=== PATIENT | male | born 1950 | race Caucasian/White ===

== ENCOUNTER 2017-11-19 20:06 | Observation (INO) | payer OTHER ==
[~2017-11-19] VITALS: Ht 185.4 cm; Wt 103.6 kg
[2017-11-19 20:10] VITALS: BP 140/68; PULSE 55; RESP 20; TEMP 97.2; O2SAT 98
[2017-11-19 20:25] VITALS: BP 167/83; PULSE 58; RESP 16; O2SAT 98
[2017-11-19] MEDS ORDERED: MORPHINE SULFATE 2 MG/ML INJ IV PUSH ONE (21:00)
[2017-11-19] MEDS ORDERED: ONDANSETRON HCL 4 MG/2 ML VIAL IV PUSH ONE ×2 (21:00→23:30)
[2017-11-19 21:01] LABS: AUTOMATED NEUTROPHIL # 11.5 TH/MM3 (1.8-7.7); BASOPHIL # 0.1 TH/MM3 (0-0.2); BASOPHIL % 0.8 % (0.0-2.0); EOSINOPHIL # 0.1 TH/MM3 (0-0.4); EOSINOPHIL % 0.5 % (0.0-4.0); HEMATOCRIT 45.7 % (39.0-51.0); HEMOGLOBIN 14.8 GM/DL (13.0-17.0); LYMPH % 10.9 % (9.0-44.0); LYMPHOCYTE # 1.5 TH/MM3 (1.0-4.8); MEAN CELL VOLUME 93.8 FL (80.0-100.0); MEAN CORPUSCULAR HEMOGLOBIN 30.4 PG (27.0-34.0); MEAN CORPUSCULAR HGB CONC 32.4 % (32.0-36.0); MEAN PLATELET VOLUME 9.4 FL (7.0-11.0); MONO % 3.4 % (0.0-8.0); MONOCYTE # 0.5 TH/MM3 (0-0.9); NEUT % 84.4 % (16.0-70.0); PLATELET COUNT 265 TH/MM3 (150-450); RED BLOOD COUNT 4.87 MIL/MM3 (4.50-5.90); RED CELL DISTRIBUTION WIDTH 13.6 % (11.6-17.2); WHITE BLOOD COUNT 13.7 TH/MM3 (4.0-11.0)
[2017-11-19 21:02] LABS: CHLORIDE 103 MEQ/L (98-107); SODIUM (NA) 138 MEQ/L (136-145)
[2017-11-19 21:06] LABS: ALBUMIN 3.9 GM/DL (3.4-5.0); BICARBONATE 27.5 MEQ/L (21.0-32.0); BLOOD UREA NITROGEN 17 MG/DL (7-18); CALCIUM 8.8 MG/DL (8.5-10.1); GLUCOSE,RANDOM 129 MG/DL (74-106); LIPASE 180 U/L (73-393)
[2017-11-19 21:09] LABS: ALT (GPT) 39 U/L (12-78); AST (GOT) 26 U/L (15-37); GLOMERULAR FILTRATION RATE 67 ML/MIN (>89)
[2017-11-19 21:11] LABS: TOTAL BILIRUBIN ADULT 0.6 MG/DL (0.2-1.0); TOTAL PROTEIN 7.5 GM/DL (6.4-8.2)
[2017-11-19 21:12] LABS: ALKALINE PHOSPHATASE 78 U/L (45-117)
[2017-11-19 21:14] VITALS: BP_SYST 165; BP_SYST 166; BP_DIAS 72; BP_DIAS 78; PULSE 62; RESP 16
[2017-11-19 21:19] LABS: PROTHROMBIN TIME - PATIENT 10.6 SEC (9.8-11.6)
[2017-11-19 21:32] LABS: TROPONIN I LESS THAN 0.02 NG/ML (0.02-0.05)
--- NOTE | 2017-11-19 21:43 | PD ---
HPI Chief Complaint: Abdominal Pain Time Seen by Provider: 20:22 Travel History International Travel<30 days: No Contact w/Intl Traveler<30days: No Traveled to known affect area: No History of Present Illness HPI 67-year-old male presents emergency department for evaluation of spasmodic burning pain throughout his entire abdomen. Patient states he does watching football when the pain started. States he has never had pain like this before. States it radiates up into his chest, nausea without vomiting, no diarrhea no constipation. Patient has been an alcoholic in the past but states not drinking several years. He also states his abdomen had been noted to be more distended according to his friend. States pain as burning throughout his entire abdomen radiation to his chest, context as above PFSH Past Medical History Tetanus Vaccination: Unknown ?: Not Social History Alcohol Use: No Tobacco Use: No Substance Use: No Allergies-Medications (Allergen,Severity, Reaction): Coded Allergies: No Known Allergies (Verified Allergy, Mild, 04/30/07) Reported Meds & Prescriptions Reported Meds & Active Scripts Active No Active Prescriptions or Reported Medications Review of Systems Except as stated in HPI: all other systems reviewed are Neg Physical Exam Narrative GENERAL: Well-developed well-nourished appears uncomfortable. SKIN: Focused skin assessment warm/dry. HEAD: Atraumatic. Normocephalic. EYES: Pupils equal and round. No scleral icterus. No injection or drainage. ENT: No nasal bleeding or discharge. Mucous membranes pink and moist. NECK: Trachea midline. No JVD. CARDIOVASCULAR: Regular rate and rhythm. No murmur appreciated. RESPIRATORY: No accessory muscle use. Clear to auscultation. Breath sounds equal bilaterally. GASTROINTESTINAL: Abdomen soft, non-tender, nondistended. Hepatic and splenic margins not palpable. No rebound no percussive tenderness MUSCULOSKELETAL: No obvious deformities. No clubbing. No cyanosis. No edema. NEUROLOGICAL: Awake and alert. No obvious cranial nerve deficits. Motor grossly within normal limits. Normal speech. PSYCHIATRIC: Appropriate mood and affect; insight and judgment normal. Data Data Last Documented VS Vital Signs Date Time Temp Pulse Resp B/P (MAP) Pulse Ox O2 Delivery O2 Flow Rate FiO2 11/19/17 23:32 89 16 141/66 (91) 99 Room Air 11/19/17 20:10 97.2 Orders Orders Complete Blood Count With Diff (11/19/17 20:39) Comprehensive Metabolic Panel (11/19/17 20:39) Urinalysis - C+S If Indicated (11/19/17 20:39) Iv Access Insert/Monitor (11/19/17 20:39) Oxygen Administration (11/19/17 20:39) Oximetry (11/19/17 20:39) Lipase (11/19/17 20:39) Cta Thor Abd Aorta W Iv C W3d (11/19/17 ) Act Partial Throm Time (Ptt) (11/19/17 20:52) Prothrombin Time / Inr (Pt) (11/19/17 20:52) Morphine Inj (Morphine Inj) (11/19/17 21:00) Ondansetron Inj (Zofran Inj) (11/19/17 21:00) Ed Poc Ultrasound (11/19/17 ) Troponin I (11/19/17 20:30) Electrocardiogram (11/19/17 20:42) Iohexol 350 Inj (Omnipaque 350 Inj) (11/19/17 22:24) Al-Mag Hy-Si 40-40-4 Mg/Ml Liq (Mag-Al P (11/19/17 23:15) Lidocaine 2% Viscous (Xylocaine 2% Visco (11/19/17 23:15) Ondansetron Inj (Zofran Inj) (11/19/17 23:30) Labs Laboratory Tests Test 11/19/17 20:30 White Blood Count 13.7 TH/MM3 Red Blood Count 4.87 MIL/MM3 Hemoglobin 14.8 GM/DL Hematocrit 45.7 % Mean Corpuscular Volume 93.8 FL Mean Corpuscular Hemoglobin 30.4 PG Mean Corpuscular Hemoglobin Concent 32.4 % Red Cell Distribution Width 13.6 % Platelet Count 265 TH/MM3 Mean Platelet Volume 9.4 FL Neutrophils (%) (Auto) 84.4 % Lymphocytes (%) (Auto) 10.9 % Monocytes (%) (Auto) 3.4 % Eosinophils (%) (Auto) 0.5 % Basophils (%) (Auto) 0.8 % Neutrophils # (Auto) 11.5 TH/MM3 Lymphocytes # (Auto) 1.5 TH/MM3 Monocytes # (Auto) 0.5 TH/MM3 Eosinophils # (Auto) 0.1 TH/MM3 Basophils # (Auto) 0.1 TH/MM3 CBC Comment DIFF FINAL Differential Comment Prothrombin Time 10.6 SEC Prothromb Time International Ratio 1.0 RATIO Activated Partial Thromboplast Time 27.2 SEC Blood Urea Nitrogen 17 MG/DL Creatinine 1.10 MG/DL Random Glucose 129 MG/DL Total Protein 7.5 GM/DL Albumin 3.9 GM/DL Calcium Level 8.8 MG/DL Alkaline Phosphatase 78 U/L Aspartate Amino Transf (AST/SGOT) 26 U/L Alanine Aminotransferase (ALT/SGPT) 39 U/L Total Bilirubin 0.6 MG/DL Sodium Level 138 MEQ/L Potassium Level 3.4 MEQ/L Chloride Level 103 MEQ/L Carbon Dioxide Level 27.5 MEQ/L Anion Gap 8 MEQ/L Estimat Glomerular Filtration Rate 67 ML/MIN Troponin I LESS THAN 0.02 NG/ML Lipase 180 U/L MDM Medical Decision Making Medical Screen Exam Complete: Yes Emergency Medical Condition: Yes Differential Diagnosis Aortic dissection, gastritis, esophageal spasm, cholecystitis, pancreatitis, dehydration, Narrative Course Patient's CT aorta of the chest abdomen pelvis shows no aortic abnormality, multiple calcified gallstones but his liver function tests are not suggestive of acute cholecystitis in his no findings for acute cholecystitis on CT. Patient has given morphine slept soundly for several hours then had some return of his pain, GI cocktail as ordered, will be p.o. challenged, discussed with Dr. De Oliveira to reexamine the patient after p.o. challenge disposition appropriately. Procedures Procedure Narrative Bedside ultrasound: Ultrasound fast of the abdomen as negative for free fluid in the abdomen. Scripts No Active Prescriptions or Reported Meds Suraj Pruitt MD Nov 19, 2017 21:43
[2017-11-19] MEDS ORDERED: IOHEXOL 350 MG/ML 10 ML VIAL (for RAD DIAG) IVCONTRAST ONE (22:24)
[2017-11-19 22:39] VITALS: BP 153/63; PULSE 72; RESP 16; O2SAT 99
--- NOTE | 2017-11-19 23:03 | RADRPT ---
EXAM DATE/TIME: 11/19/2017 21:48 [facility] COMPARISON: No previous studies available for comparison. INDICATIONS : Epigastric and lower chest pain. IV CONTRAST: 100 cc Omnipaque 350 (iohexol) IV RADIATION DOSE: 22.52 CTDIvol (mGy) MEDICAL HISTORY : None SURGICAL HISTORY : None. ENCOUNTER: Initial ACUITY: 1 day PAIN SCALE: 10/10 LOCATION: Bilateral upper quadrant lower chest TECHNIQUE: Volumetric scanning was performed using a multi-row detector CT scanner. The data was post processed with a variety of visualization algorithms including full volume maximum intensity projection, multi -planar sliding thin slab reformation, curved planar reformation, and surface rendering techniques. Using automated exposure control and adjustment of the mA and/or kV according to patient size, radiat ion dose was kept as low as reasonably achievable to obtain optimal diagnostic quality images. DICOM format image data is available electronically for review and comparison. FINDINGS: LUNGS: There is no consolidation or pneumothorax. No concerning pulmonary nodule is visualized. No pleural fluid is present. MEDIASTINUM: No abnormally enlarged lymph nodes by CT criteria. No axillary or hilar abnormalities are identified. ABDOMEN: There are multiple varying sized low density structures within the liver suggestive of cysts. Lesion s in the left lobe measure 2.5 cm. And the lesions in the right lobe are subcentimeter. Multiple ca lcified gallstones measuring up to 2 cm in size.. The adrenal glands are normal. The kidneys demonstr ate no evidence of solid renal mass or hydronephrosis. No free fluid or abdominal masses are identifi ed. No para-aortic adenopathy is seen. Mild sized fat-containing umbilical hernia. PELVIS: No evidence of free fluid or pelvic mass. No abnormally enlarged inguinal or retroperitoneal lymph no vj are present. The bladder is unremarkable. THORACIC AORTA: The thoracic aortic root is normal with normal branching of the great vessels. There is no evidence of aneurysm or dissection. ABDOMINAL AORTA: The aorta is normal in caliber without aneurysm or dissection. The renal arteries are patent bilater ally. The proximal celiac and superior mesenteric arteries are patent and normal in diameter. PELVIC VESSELS: The internal iliac and external iliac vessels are patent without aneurysm or stenosis. CONCLUSION: 1. Negative CT of the thoracic and abdominal aorta. 2. Multiple calcified gallstones in multiple hepatic cysts. Abdirizak Steven MD on November 19, 2017 at 22:56 Board Certified Radiologist. This report was verified electronically.
[2017-11-19] MEDS ORDERED: LIDOCAINE VISCOUS 2% SOLN 15 ML UDC PO ONE (23:15)
[2017-11-19] MEDS ORDERED: ALUMINUM/MAGNESIUM/SIMETH 30 ML CUP PO ONE (23:15)
--- NOTE | 2017-11-19 23:23 | PD ---
Physical Exam Date Seen by Provider: Nov 19, 2017 Time Seen by Provider: 23:21 Narrative @ 23:21 Accepted in transfer of care from Dr. Pruitt; patient vomiting Data Data Last Documented VS Vital Signs Date Time Temp Pulse Resp B/P (MAP) Pulse Ox O2 Delivery O2 Flow Rate FiO2 11/19/17 23:32 89 16 141/66 (91) 99 Room Air 11/19/17 20:10 97.2 Orders Orders Complete Blood Count With Diff (11/19/17 20:39) Comprehensive Metabolic Panel (11/19/17 20:39) Urinalysis - C+S If Indicated (11/19/17 20:39) Iv Access Insert/Monitor (11/19/17 20:39) Oxygen Administration (11/19/17 20:39) Oximetry (11/19/17 20:39) Lipase (11/19/17 20:39) Cta Thor Abd Aorta W Iv C W3d (11/19/17 ) Act Partial Throm Time (Ptt) (11/19/17 20:52) Prothrombin Time / Inr (Pt) (11/19/17 20:52) Morphine Inj (Morphine Inj) (11/19/17 21:00) Ondansetron Inj (Zofran Inj) (11/19/17 21:00) Ed Poc Ultrasound (11/19/17 ) Troponin I (11/19/17 20:30) Electrocardiogram (11/19/17 20:42) Iohexol 350 Inj (Omnipaque 350 Inj) (11/19/17 22:24) Al-Mag Hy-Si 40-40-4 Mg/Ml Liq (Mag-Al P (11/19/17 23:15) Lidocaine 2% Viscous (Xylocaine 2% Visco (11/19/17 23:15) Ondansetron Inj (Zofran Inj) (11/19/17 23:30) Place In Observation (11/20/17 ) Vital Signs (Adult) Q4H (11/20/17 00:13) Activity Oob With Assistance (11/20/17 00:13) Diet Npo (11/20/17 Breakfast) Sodium Chlor 0.9% 1000 Ml Inj (Ns 1000 M (11/20/17 00:13) Sodium Chloride 0.9% Flush (Ns Flush) (11/20/17 00:15) Sodium Chloride 0.9% Flush (Ns Flush) (11/20/17 09:00) Acetaminophen (Tylenol) (11/20/17 00:15) Ondansetron Inj (Zofran Inj) (11/20/17 00:15) Comprehensive Metabolic Panel (11/21/17 06:00) Complete Blood Count With Diff (11/21/17 06:00) Heparin Inj (Heparin Inj) (11/20/17 00:15) Naloxone Inj (Narcan Inj) (11/20/17 00:15) Docusate Sodium-Senna (Dacia-Colace) (11/20/17 09:00) Magnesium Hydroxide Liq (Milk Of Magnesi (11/20/17 00:15) Sennosides (Senokot) (11/20/17 00:15) Bisacodyl Supp (Dulcolax Supp) (11/20/17 00:15) Lactulose Liq (Lactulose Liq) (11/20/17 00:15) Admit Order (Ed Use Only) (11/20/17 ) Vital Signs (Adult) Q4H (11/20/17 00:14) Activity Oob With Assistance (11/20/17 00:14) Notify Dr: Other (11/20/17 00:14) Labs Laboratory Tests Test 11/19/17 20:30 White Blood Count 13.7 TH/MM3 Red Blood Count 4.87 MIL/MM3 Hemoglobin 14.8 GM/DL Hematocrit 45.7 % Mean Corpuscular Volume 93.8 FL Mean Corpuscular Hemoglobin 30.4 PG Mean Corpuscular Hemoglobin Concent 32.4 % Red Cell Distribution Width 13.6 % Platelet Count 265 TH/MM3 Mean Platelet Volume 9.4 FL Neutrophils (%) (Auto) 84.4 % Lymphocytes (%) (Auto) 10.9 % Monocytes (%) (Auto) 3.4 % Eosinophils (%) (Auto) 0.5 % Basophils (%) (Auto) 0.8 % Neutrophils # (Auto) 11.5 TH/MM3 Lymphocytes # (Auto) 1.5 TH/MM3 Monocytes # (Auto) 0.5 TH/MM3 Eosinophils # (Auto) 0.1 TH/MM3 Basophils # (Auto) 0.1 TH/MM3 CBC Comment DIFF FINAL Differential Comment Prothrombin Time 10.6 SEC Prothromb Time International Ratio 1.0 RATIO Activated Partial Thromboplast Time 27.2 SEC Blood Urea Nitrogen 17 MG/DL Creatinine 1.10 MG/DL Random Glucose 129 MG/DL Total Protein 7.5 GM/DL Albumin 3.9 GM/DL Calcium Level 8.8 MG/DL Alkaline Phosphatase 78 U/L Aspartate Amino Transf (AST/SGOT) 26 U/L Alanine Aminotransferase (ALT/SGPT) 39 U/L Total Bilirubin 0.6 MG/DL Sodium Level 138 MEQ/L Potassium Level 3.4 MEQ/L Chloride Level 103 MEQ/L Carbon Dioxide Level 27.5 MEQ/L Anion Gap 8 MEQ/L Estimat Glomerular Filtration Rate 67 ML/MIN Troponin I LESS THAN 0.02 NG/ML Lipase 180 U/L [facility] Medical Record Reviewed: Yes Supervised Visit with ALEXANDRA: No Interpretation(s) EKG sinus bradycardia rate 58 no ventricular conduction delay no acute ST elevation or injury pattern change noted Last Impressions Aorta CTA 11/19/17 0000 Signed Impressions: Service Date/Time: Sunday, November 19, 2017 21:48 - CONCLUSION: 1. Negative CT of the thoracic and abdominal aorta. 2. Multiple calcified gallstones in multiple hepatic cysts. Abdirizak Steven MD CBC & BMP Diagram 11/19/17 20:30 Total Protein 7.5, Albumin 3.9, Calcium Level 8.8, Alkaline Phosphatase 78, Aspartate Amino Transf (AST/SGOT) 26, Alanine Aminotransferase (ALT/SGPT) 39, Total Bilirubin 0.6 Vital Signs Date Time Temp Pulse Resp B/P (MAP) Pulse Ox O2 Delivery O2 Flow Rate FiO2 11/19/17 22:39 72 16 153/63 (93) 99 Room Air 11/19/17 21:14 62 16 165/78 (107) 166/72 (103) 11/19/17 20:25 58 16 167/83 (111) 98 Room Air 11/19/17 20:10 97.2 55 20 140/68 (92) 98 Troponin I less than 0.02, not elevated Differential Diagnosis Accepted in transfer of care from Dr. Pruitt please refer to his dictation Narrative Course Accepted in transfer of care from Dr. Pruitt with plan for admission for intractable abdominal pain and vomiting Physician Communication Physician Communication discussed with DR Breaux ---obs Diagnosis Primary Impression: Intractable vomiting Additional Impression: Abdominal pain Scripts No Active Prescriptions or Reported Meds Julita De Oliveira MD Nov 19, 2017 23:23
[2017-11-19 23:32] VITALS: BP 141/66; PULSE 89; RESP 16; O2SAT 99
[2017-11-20] MEDS ORDERED: NALOXONE HCL 0.4 MG/ML AMP IV PUSH PRN (00:15)
[2017-11-20] MEDS ORDERED: SENNOSIDES 8.6 MG TAB PO PRN (00:15)
[2017-11-20] MEDS ORDERED: ONDANSETRON HCL 4 MG/2 ML VIAL IVP PRN (00:15)
[2017-11-20] MEDS ORDERED: ACETAMINOPHEN 325 MG TAB PO PRN (00:15)
[2017-11-20] MEDS ORDERED: LACTULOSE SYRUP 20 GM/30 ML CUP PO PRN (00:15)
[2017-11-20] MEDS ORDERED: SODIUM CHLORIDE 0.9% FLUSH 10 ML FLUSH IV FLUSH PRN (00:15)
[2017-11-20] MEDS ORDERED: MAGNESIUM HYDROXIDE SUSP 30 ML CUP PO PRN (00:15)
[2017-11-20] MEDS ORDERED: BISACODYL 10 MG SUPP RECTAL PRN (00:15)
[2017-11-20] MEDS ORDERED: DIATRIZOATE MEGLUM/DIATRIZOATE SOD 120 ML BTL (for RAD DIAG) RECTAL ONE (00:17)
[2017-11-20] MEDS ORDERED: HYDROmorphone HCL PF 1 MG/ML VIAL IV PUSH ONE (00:45)
[2017-11-20] MEDS: SODIUM CHLOR 0.9% 1000 ML INJ 1,000 ML IV SCH ×2 (01:19→08:34)
[2017-11-20 01:25] VITALS: BP 150/63; PULSE 60; RESP 18; TEMP 98.3; O2SAT 95
[2017-11-20 01:30] VITALS: BP 144/72
--- NOTE | 2017-11-20 01:33 | RADRPT ---
EXAM DATE/TIME: 11/20/2017 00:43 [facility] COMPARISON: No previous studies available for comparison. INDICATIONS : Right upper quadrant pain. MEDICAL HISTORY : Right upper quadrant pain. SURGICAL HISTORY : None. ENCOUNTER: Initial ACUITY: 1 day PAIN SCORE: 4/10 LOCATION: Right upper quadrant MEASUREMENTS: LIVER: 17.6 cm length COMMON DUCT: 5 mm RIGHT KIDNEY: 12.1 x 5.1 x 1.1 cm FINDINGS: LIVER: Multiple cysts in the left lobe of the liver without increased flow by color Doppler. These measure 2.2 x 1.9 cm, 2.0 x 1.6 cm, and 3.2 x 3.1 cm. No biliary ductal dilatation. Hepatopedal flow is see n in the portal vein. COMMON DUCT: No intraluminal mass or stone visualized. GALLBLADDER: Several large echogenic and shadowing stones in the gallbladder measuring up to 2.2 cm in size. Gall bladder wall is normal thickness. No pericholecystic fluid. PANCREAS: The visualized portions are within normal limits. RIGHT KIDNEY: No evidence of hydronephrosis, stone, or mass. CONCLUSION: 1. Multiple large gallstones. 2. Hepatomegaly. Multiple simple cysts of the left lobe. Abdirizak Steven MD on November 20, 2017 at 1:29 Board Certified Radiologist. This report was verified electronically.
[2017-11-20] MEDS: HEPARIN SODIUM - SQ 10,000 UNITS/ML VIAL SQ SCH ×3 (01:35→17:33)
[2017-11-20] MEDS ORDERED: HYDROmorphone HCL PF 2 MG/ML VIAL IV PUSH ONE (01:45)
[2017-11-20 04:00] VITALS: BP 105/53; PULSE 60; RESP 18; TEMP 98.6; O2SAT 96
[2017-11-20 08:00] VITALS: BP 122/57; PULSE 62; RESP 13; TEMP 97.2; O2SAT 94
[2017-11-20] MEDS: SODIUM CHLORIDE 0.9% FLUSH 10 ML FLUSH IV FLUSH SCH ×2 (08:17→20:03)
[2017-11-20 08:29] LABS: AUTOMATED NEUTROPHIL # 8.7 TH/MM3 (1.8-7.7); BASOPHIL # 0.3 TH/MM3 (0-0.2); BASOPHIL % 3.1 % (0.0-2.0); EOSINOPHIL % 0.2 % (0.0-4.0); HEMATOCRIT 41.8 % (39.0-51.0); HEMOGLOBIN 14.1 GM/DL (13.0-17.0); LYMPH % 12.4 % (9.0-44.0); LYMPHOCYTE # 1.3 TH/MM3 (1.0-4.8); MEAN CELL VOLUME 92.6 FL (80.0-100.0); MEAN CORPUSCULAR HEMOGLOBIN 31.1 PG (27.0-34.0); MEAN CORPUSCULAR HGB CONC 33.7 % (32.0-36.0); MEAN PLATELET VOLUME 9.1 FL (7.0-11.0); MONO % 4.3 % (0.0-8.0); MONOCYTE # 0.5 TH/MM3 (0-0.9); PLATELET COUNT 212 TH/MM3 (150-450); RED BLOOD COUNT 4.52 MIL/MM3 (4.50-5.90); RED CELL DISTRIBUTION WIDTH 13.3 % (11.6-17.2); WHITE BLOOD COUNT 10.8 TH/MM3 (4.0-11.0)
[2017-11-20] MEDS ORDERED: ACETAMINOPHEN/HYDROcodone 325 MG/10 MG TAB PO ONE (08:30)
[2017-11-20] MEDS: DOCUSATE SODIUM 50 MG/SENNA 8.6 MG TAB PO SCH ×2 (08:34→20:03)
[2017-11-20 08:38] LABS: CALCIUM 8.4 MG/DL (8.5-10.1)
[2017-11-20 08:39] LABS: BICARBONATE 24.3 MEQ/L (21.0-32.0); MAGNESIUM 2.5 MG/DL (1.5-2.5)
[2017-11-20 08:42] LABS: CREATININE 0.73 MG/DL (0.60-1.30)
--- NOTE | 2017-11-20 08:56 | HHI.HP ---
[facility] No Primary Care Physician Admission Diagnosis Intractable nausea/vomiting Diagnoses: Chief Complaint: Abdominal pain Travel History International Travel<30 Days: No Contact w/Intl Traveler <30 Da: No Traveled to Known Affected Are: No History of Present Illness 67-year-old white male who was admitted for abdominal pain. Patient was in his usual state of health until yesterday while watching a football game 30 minutes after ingesting some soup he began experiencing diffuse abdominal pain which was unrelenting, constant, severe, 10 out of 10, localized all over the abdomen, cramping in nature. Denies any alleviating or exacerbating factors. Says he cannot find a comfortable position last night while he was in the hospital laying down. Reports having some intermittent nausea but no vomiting. Denies any changes in his stool including any blood. Does state that he often has some loose stools and goes about once every 2 days. Denies any dysuria or hematuria. Denies taking any painkillers. Says he has had a colonoscopy about 20 years ago and said they saw white spots but otherwise nothing came of it. Review of Systems Except as stated in HPI: all other systems reviewed are Neg Past Family Social History Past Medical History Alcoholism in the past Past Surgical History No abdominal surgeries per patient Allergies: Coded Allergies: No Known Allergies (Verified Allergy, Mild, 04/30/07) Family History Denies any family history of colorectal cancer, no pertinent family history per patient Social History Denies any illicit drug use. Reports being a heavy drinker up until 1983. Attends AA meetings Physical Exam Vital Signs Vital Signs Date Time Temp Pulse Resp B/P (MAP) Pulse Ox O2 Delivery O2 Flow Rate FiO2 11/20/17 04:00 98.6 60 18 105/53 (70) 96 11/20/17 01:30 85 6 144/72 (96) 11/20/17 01:25 98.3 60 18 150/63 (92) 95 11/19/17 23:32 89 16 141/66 (91) 99 Room Air 11/19/17 22:39 72 16 153/63 (93) 99 Room Air 11/19/17 21:14 62 16 165/78 (107) 166/72 (103) 11/19/17 20:25 58 16 167/83 (111) 98 Room Air 11/19/17 20:10 97.2 55 20 140/68 (92) 98 Physical Exam VS: afebrile GENERAL: Elderly obese white male, lying in bed, no acute distress SKIN: Warm and dry. EYES: No scleral icterus. No injection or drainage. ENT: No nasal bleeding or discharge. Mucous membranes pink and moist. Poor dental hygiene, missing teeth CARDIOVASCULAR: Regular rate and rhythm. no murmurs RESPIRATORY: No accessory muscle use. Clear to auscultation. Breath sounds equal bilaterally. GASTROINTESTINAL: Abdomen soft, minimal diffuse distention, moderate tenderness to palpation all throughout right upper and lower quadrants, umbilical and suprapubic area, and left lower quadrants. Epigastrium is nontender to palpation. Extremities: No clubbing, cyanosis, or edema. No obvious deformities. MUSCULOSKELETAL: no chest wall tenderness to palpation. gRossly intact ROM with 5/5 strength in upper and lower extremities proximally; adequate muscle bulk and tone for age and habitus NEUROLOGICAL: Awake and alert. No obvious cranial nerve deficits. No facial droop nor slurred speech noted. PSYCHIATRIC: Appropriate mood and affect; insight and judgment normal. Laboratory Laboratory Tests Test 11/19/17 20:30 11/20/17 08:10 White Blood Count 13.7 10.8 Red Blood Count 4.87 4.52 Hemoglobin 14.8 14.1 Hematocrit 45.7 41.8 Mean Corpuscular Volume 93.8 92.6 Mean Corpuscular Hemoglobin 30.4 31.1 Mean Corpuscular Hemoglobin Concent 32.4 33.7 Red Cell Distribution Width 13.6 13.3 Platelet Count 265 212 Mean Platelet Volume 9.4 9.1 Neutrophils (%) (Auto) 84.4 80.0 Lymphocytes (%) (Auto) 10.9 12.4 Monocytes (%) (Auto) 3.4 4.3 Eosinophils (%) (Auto) 0.5 0.2 Basophils (%) (Auto) 0.8 3.1 Neutrophils # (Auto) 11.5 8.7 Lymphocytes # (Auto) 1.5 1.3 Monocytes # (Auto) 0.5 0.5 Eosinophils # (Auto) 0.1 0.0 Basophils # (Auto) 0.1 0.3 CBC Comment DIFF FINAL DIFF FINAL Differential Comment Prothrombin Time 10.6 Prothromb Time International Ratio 1.0 Activated Partial Thromboplast Time 27.2 Blood Urea Nitrogen 17 14 Creatinine 1.10 0.73 Random Glucose 129 91 Total Protein 7.5 Albumin 3.9 Calcium Level 8.8 8.4 Alkaline Phosphatase 78 Aspartate Amino Transf (AST/SGOT) 26 Alanine Aminotransferase (ALT/SGPT) 39 Total Bilirubin 0.6 Sodium Level 138 138 Potassium Level 3.4 3.9 Chloride Level 103 107 Carbon Dioxide Level 27.5 24.3 Anion Gap 8 7 Estimat Glomerular Filtration Rate 67 107 Troponin I LESS THAN 0.02 Lipase 180 Magnesium Level 2.5 Result Diagram: 11/19/17202911/19/172029 Imaging Last Impressions Gall Bladder Ultrasound 11/20/17 0000 Signed Impressions: Service Date/Time: Monday, November 20, 2017 00:43 - CONCLUSION: 1. Multiple large gallstones. 2. Hepatomegaly. Multiple simple cysts of the left lobe. Abdirizak Steven MD Aorta CTA 11/19/17 0000 Signed Impressions: Service Date/Time: Sunday, November 19, 2017 21:48 - CONCLUSION: 1. Negative CT of the thoracic and abdominal aorta. 2. Multiple calcified gallstones in multiple hepatic cysts. Abdirizak Steven MD Caprini VTE Risk Assessment Caprini VTE Risk Assessment: Mod/High Risk (score >= 2) Caprini Risk Assessment Model Point Value = 1 Point Value = 2 Point Value = 3 Point Value = 5 Age 41-60 Minor surgery BMI > 25 kg/m2 Swollen legs Varicose veins or History of unexplained or recurrent spontaneous Oral contraceptives or hormone replacement Sepsis (< 1 month) Serious lung disease, including pneumonia (< 1 month) Abnormal pulmonary function Acute myocardial infarction Congestive heart failure (< 1 month) History of inflammatory bowel disease Medical patient at bed rest Age 61-74 Arthroscopic surgery Major open surgery (> 45 min) Laparoscopic surgery (> 45 min) Malignancy Confined to bed (> 72 hours) Immobilizing plaster cast Central venous access Age >= 75 History of VTE Family history of VTE Factor V Leiden Prothrombin [id number] Lupus anticoagulant Anticardiolipin antibodies Elevated serum homocysteine Heparin-induced thrombocytopenia Other congenital or acquired thrombophilia Stroke (< 1 month) Elective arthroplasty Hip, pelvis, or leg fracture Acute spinal cord injury (< 1 month) Prophylaxis Regimen Total Risk Factor Score Risk Level Prophylaxis Regimen 0-1 Low Early ambulation 2 Moderate Order ONE of the following: *Sequential Compression Device (SCD) *Heparin 5000 units SQ BID 3-4 Higher Order ONE of the following medications: *Heparin 5000 units SQ TID *Enoxaparin/Lovenox 40 mg SQ daily (WT < 150 kg, CrCl > 30 mL/min) *Enoxaparin/Lovenox 30 mg SQ daily (WT < 150 kg, CrCl > 10-29 mL/min) *Enoxaparin/Lovenox 30 mg SQ BID (WT < 150 kg, CrCl > 30 mL/min) AND/OR *Sequential Compression Device (SCD) 5 or more Highest Order ONE of the following medications: *Heparin 5000 units SQ TID (Preferred with Epidurals) *Enoxaparin/Lovenox 40 mg SQ daily (WT < 150 kg, CrCl > 30 mL/min) *Enoxaparin/Lovenox 30 mg SQ daily (WT < 150 kg, CrCl > 10-29 mL/min) *Enoxaparin/Lovenox 30 mg SQ BID (WT < 150 kg, CrCl > 30 mL/min) AND *Sequential Compression Device (SCD) Assessment and Plan Assessment and Plan 67-year-old white male being admitted for intractable abdominal pain - Needed IV narcotics in the emergency room and on the floor - Gallbladder ultrasound is negative for any acute cholecystitis, does have multiple calcified gallstones per radiology read. I independently reviewed the CT scan component of the CTA and I see substantial intracolonic gaseous distention as well as substantial constipation. - LFTs are unremarkable and white count has normalized - IVFs, Relistor given patient is likely going to experience more constipation from his narcotics - Soapsuds enema, oral MiraLAX; will consider Gastrografin enema later today if no results - Gas x - will obtain clean catch and UDS Addendum: Pt had significant improvement w/ fleet enema and Gastrografin enema. His abdominal pain has significantly improved w/ further narcotic medication. He was tolerating by mouth intake well. Patient has met maximal benefit from hospitalization and is clinically stable for discharge. He was counseled extensively on the importance of taking oral stool softeners such as MiraLAX on a daily basis as well as doing a suppository every other day at home to help address the hardened stool in his more distal colon. I also informed him that he can take Bentyl as needed for cramping. Patient has verbalized understanding and is comfortable going home. Ant Krause MD Nov 20, 2017 08:56
[2017-11-20] MEDS ORDERED: SIMETHICONE 80 MG CHEWABLE TAB CHEW ONE (09:00)
[2017-11-20] MEDS ORDERED: POLYETHYLENE GLYCOL 17 GM PKG PO SCH (09:00)
[2017-11-20] MEDS ORDERED: METHYLNALTREXONE BROMIDE 12 MG/0.6 ML VIAL SQ ONE (09:00)
[2017-11-20] MEDS ORDERED: SOD PHOSPHATE/SOD BIPHOSPHATE (ADULT) ENEMA 133ML RECTAL ONE (10:00)
[2017-11-20 11:19] LABS: BILIRUBIN, URINE NEG (NEG); BLOOD, URINE NEG (NEG); GLUCOSE,URINE NEG (NEG); KETONE, URINE 15 mg/dL (NEG); NITRITE,URINE NEG (NEG); URINE LEUKOCYTE ESTERASE NEG (NEG)
[2017-11-20 11:30] LABS: URINE COLOR YELLOW (YELLW/STRAW)
[2017-11-20 11:33] LABS: MUCUS URINE FEW /lpf (OCC); SQUAMOUS EPITHELIAL CELL URINE 0-2 /hpf (0-5); WBC, URINE 0-2 /hpf (0-5)
[2017-11-20 12:00] VITALS: BP 131/60; PULSE 57; RESP 16; TEMP 97.3; O2SAT 94
[2017-11-20] MEDS ORDERED: SIMETHICONE 80 MG CHEWABLE TAB CHEW PRN (13:30)
[2017-11-20] MEDS ORDERED: LIDOCAINE VISCOUS 2% SOLN 15 ML UDC SWISH-SWAL ONE (14:00)
[2017-11-20] MEDS ORDERED: LIDOCAINE VISCOUS 2% SOLN 15 ML UDC SWISH-SPIT ONE (14:00)
[2017-11-20] MEDS ORDERED: PANTOPRAZOLE SOD 40 MG DELAYED RELEASE TAB PO ONE (14:00)
--- NOTE | 2017-11-20 15:43 | RADRPT ---
EXAM DATE/TIME: 11/20/2017 14:23 [place] COMPARISON: No previous studies available for comparison. INDICATIONS : Constipation. FLUORO TIME: 2.40 minutes IMAGE COUNT: 13 CONTRAST: 1. [facility] MEDICAL HISTORY : None. SURGICAL HISTORY : None. ENCOUNTER: Initial ACUITY: 1 day PAIN SCORE: 8/10 LOCATION: Bilateral upper quadrant abdomen FINDINGS: Preliminary safety technician film demonstrates gas and stool noted in the colon. There are multiple loops of non dilated air-containing small bowel in the midabdomen. Under fluoroscopic guidance a Gastrografin enema was performed with free flow of contrast to the ceca l tip. Gastrografin enema exam demonstrates scattered diverticuli greatest in the sigmoid colon with no defi nite inflammatory change. There is a moderate amount of stool present greatest in the right side of t he colon. No large fixed filling defects or strictures are identified. There is no extrinsic mass eff ect. The stool could obscure visualization of polypoid lesions. Post evacuation radiographs are unremarkable. CONCLUSION: 1. Solid column Gastrografin enema demonstrating a moderate amount of stool. 2. No large mass or stricture identified. Small masses could be obscured by stool. Edward Martin MD on November 20, 2017 at 15:39 Board Certified Radiologist. This report was verified electronically.
[2017-11-20 16:00] VITALS: BP 141/66; PULSE 60; RESP 14; TEMP 96.7; O2SAT 98
[2017-11-20] MEDS ORDERED: DICYCLOMINE HCL 20 MG TAB PO SCH (18:00)
[2017-11-20] MEDS ORDERED: POLY17S PO (18:28)
[2017-11-20] MEDS ORDERED: DICY20TA10 PO (18:28)
[2017-11-20] MEDS ORDERED: DULC10SU3 RECTAL (18:28)
--- NOTE | 2017-11-20 18:29 | HHI.DCPOC ---
Discharge Care Plan Diagnosis: (1) Acute constipation (2) Abdominal pain Goals to Promote Your Health * To prevent worsening of your condition and complications * To maintain your health at the optimal level Directions to Meet Your Goals Take your medications as prescribed Follow your dietary instruction Follow activity as directed Keep your appointments as scheduled Take your immunizations and boosters as scheduled If your symptoms worsen call your PCP, if no PCP go to Urgent Care Center or Emergency Room Smoking is Dangerous to Your Health. Avoid second hand smoke Call the 24-hour hour crisis hotline for domestic abuse at Ant Krause MD Nov 20, 2017 18:29
[2017-11-20] MEDS ORDERED: [UNRECOGNIZED DRUG - CODE] OROPHARYNG (18:32)
--- NOTE | 2017-11-20 19:45 | EKG ---
Date Performed: 11/19/2017 Time Performed: 20:42:58 PTAGE: 67 years EKG: ECTOPIC ATRIAL BRADYCARDIA MARKED LEFT AXIS DEVIATION MODERATE INTRAVENTRICULAR CONDUCTION DELAY ABNORMAL ECG PREVIOUS TRACING : 04/30/2007 15.54 Since previous tracing, no significant change noted DOCTOR: Vy Diamond Interpretating Date/Time 11/20/2017 19:43:31
== END 2017-11-20 20:51 | disposition home or self-care (01) ==
LOC: PHED 20:06 → PHEDA 11-20 00:16 → PH3A 11-20 01:12
PROVIDERS: ADMIT Hospitalist; ATTEND Hospitalist
DX: K59.03 Drug induced constipation (principal); K80.20 Calculus of gallbladder without cholecystitis without obstruction; R00.1 Bradycardia, unspecified; K76.89 Other specified diseases of liver; R11.2 Nausea with vomiting, unspecified; E66.9 Obesity, unspecified; R16.0 Hepatomegaly, not elsewhere classified; R94.31 Abnormal electrocardiogram [ECG] [EKG]; R07.9 Chest pain, unspecified
CPT/HCPCS: 71275; 74174; 74270; 76705; 80048; 80053; 80307; 81001; 83690; 83735; 84484; 85025; 85610; 85730; 93005; 96361; 96372; 96374; 96375; 96376; 99285; G0378; J1170; J1644; J2212; J2270; J2405; J7030; Q9963; Q9967